=== PATIENT | female | born 1990 | race African-American/Black ===

== ENCOUNTER 2016-10-22 06:42 | Emergency (ER) | payer OTHER ==
[~2016-10-22] VITALS: Ht 167.6 cm; Wt 57.6 kg
[~2016-10-22 06:42] MED LIST: AMOXICILLIN500 MG ORAL; NEXAFED30 MG ORAL; NKM; TYLENOL EXTRA500 MG ORAL
[2016-10-22 06:55] VITALS: BP 139/77
[2016-10-22] MEDS ORDERED: AMOXICILLIN500 MG ORAL (07:02)
[2016-10-22] MEDS ORDERED: TYLENOL EXTRA500 MG ORAL (07:02)
--- NOTE | 2016-10-22 07:32 | Emergency Room Report ---
History of Present Illness General Chief Complaint: Sore Throat Source: Patient Present Illness HPI 25-year-old female presents to ED complaining of sore throat and earache x1 day. States symptoms started yesterday. Notes pain in the throat radiating to the left ear. Pain is 8/10, throbbing, nonradiating. Worse with swallowing. Denies any fevers or chills. Denies cough. No other aggravating or relieving factors. Denies any other associated symptoms Allergies: Coded Allergies: No Known Allergies (Unverified , 06/20/12) Patient History Past Medical History: asthma Past Surgical History: none Pertinent Family History: none Social History: Denies: alcohol use, drug use, smoking Last Menstrual Period: 2 WEEKS AGO Now: No Immunizations: UTD Reviewed Nursing Documentation: PMH: Agreed, PSxH: Agreed Nursing Documentation-PMH Hx Asthma: Yes Review of Systems All Other Systems: negative except mentioned in HPI Physical Exam Vital Signs Date Time Temp Pulse Resp B/P Pulse Ox O2 Delivery O2 Flow Rate FiO2 10/22/16 06:46 98.1 83 16 139/77 98 Room Air Sp02 EP Interpretation: reviewed, normal General Appearance: no apparent distress, alert, GCS 15, non-toxic Head: normocephalic Eyes: bilateral eye PERRL, bilateral eye normal inspection ENT: hearing grossly normal, no angioedema, normal voice, pharyngeal erythema, tonsillar exudate Neck: normal inspection Respiratory: chest non-tender, lungs clear, normal breath sounds, speaking full sentences Cardiovascular #1: regular rate, rhythm, no edema Gastrointestinal: normal inspection Rectal: deferred Genitourinary: no CVA tenderness Musculoskeletal: normal inspection Neurologic: alert, oriented x3, responsive, motor strength/tone normal, sensory intact, speech normal Psychiatric: normal inspection Skin: normal inspection Lymphatic: normal inspection Medical Decision Making Diagnostic Impression: Primary Impression: Pharyngitis Qualified Codes: J02.9 - Acute pharyngitis, unspecified ER Course Hospital Course 25-year-old female presents to ED complaining of sore throat Differential diagnoses include: URI, pharyngitis, otitis media Clinical course Patient placed on stretcher. After initial history, physical exam reveals a young female in no acute distress. Bilateral TM unremarkable. There is pharyngeal erythema w/ tonsillar exudates. No lymphadenopathy. Clinical findings consistent with pharyngitis. Diagnosis - pharyngitis Stable and discharged home with prescriptions for tylenol, amoxicillin. Instructed to followup with PMD. return to ED if symptoms recur or worsen Last Vital Signs Date Time Temp Pulse Resp B/P Pulse Ox O2 Delivery O2 Flow Rate FiO2 10/22/16 07:07 98.1 16 139/77 98 Room Air 10/22/16 06:46 83 Status: improved Disposition: HOME, SELF-CARE Condition: Stable Scripts Amoxicillin* (AMOXIL*) 500 Mg Capsule 500 MG ORAL THREE TIMES A DAY, #21 CAP Prov: MAYCO PORRAS M.D. 10/22/16 Acetaminophen* (TYLENOL EXTRA STRENGTH*) 500 Mg Tablet 500 MG ORAL Q8H Y for Prn Headache/Temp > 101, #30 TAB 0 Refills Prov: MAYCO PORRAS M.D. 10/22/16 Departure Forms: Return to Work Return to Work Date: Oct 24, 2016 Work Restrictions: None Patient Instructions: Pharyngitis, [place] MAYCO PORRAS M.D. Oct 22, 2016 07:32
== END 2016-10-22 07:07 | disposition home or self-care (01) ==
LOC: EMR 06:57
DX: J02.9 Acute pharyngitis, unspecified (principal); J45.909 Unspecified asthma, uncomplicated
CPT/HCPCS: 99284

== ENCOUNTER 2016-11-01 22:55 | Emergency (ER) | payer OTHER ==
[~2016-11-01] VITALS: Ht 167.6 cm; Wt 57.6 kg
[2016-11-02] MEDS ORDERED: TdaP Vaccine 0.5ml Syr IM ONE (00:15)
[2016-11-02] MEDS ORDERED: Lidocaine 1% Plain 30 ml INJ ONE (01:28)
[2016-11-02] MEDS ORDERED: Bacitracin Oint UD TOPIC ONE (01:49)
[2016-11-02 01:50] VITALS: BP 128/84
--- NOTE | 2016-11-02 03:29 | Emergency Room Report ---
History of Present Illness General Chief Complaint: Laceration Source: Patient Present Illness HPI 25-year-old female presents ED complaining of right hand pain status post punching car window. Patient states that she was upset and punched a window. Notes bleeding and some glass in her hand. Tetanus unknown. Pain is a 4/10, throbbing, nonradiating. No other aggravating or relieving factors. Denies any other injuries. Denies any other associated symptoms Allergies: Coded Allergies: No Known Allergies (Unverified , 06/20/12) Patient History Past Medical History: asthma Past Surgical History: none Pertinent Family History: none Social History: Denies: alcohol use, drug use, smoking Last Menstrual Period: OCT 15 Now: No : 1 Immunizations: UTD Reviewed Nursing Documentation: PMH: Agreed, PSxH: Agreed Nursing Documentation-PMH Hx Asthma: Yes Review of Systems All Other Systems: negative except mentioned in HPI Physical Exam Vital Signs Date Time Temp Pulse Resp B/P Pulse Ox O2 Delivery O2 Flow Rate FiO2 11/01/16 23:38 98.2 102 18 128/84 96 Sp02 EP Interpretation: reviewed, normal General Appearance: no apparent distress, alert, GCS 15, non-toxic Head: normocephalic Eyes: bilateral eye PERRL, bilateral eye normal inspection ENT: normal ENT inspection Neck: normal inspection Respiratory: chest non-tender, lungs clear, normal breath sounds, speaking full sentences Cardiovascular #1: normal inspection Gastrointestinal: normal inspection Rectal: deferred Genitourinary: no CVA tenderness Musculoskeletal: back normal, gait/station normal, normal range of motion, tender - R 5th knuckle Neurologic: alert, oriented x3, responsive, motor strength/tone normal, sensory intact, speech normal Psychiatric: normal inspection Skin: laceration - 1cm laceration over R 5th knuckle Lymphatic: normal inspection Procedures Laceration/Wound Repair Laceration/Wound Repair : Consent: Verbal Wound Location: upper extremity - R hand Wound's Depth, Shape: linear Wound Explored: clean Betadine Prep?: Yes Anesthesia: 1% Lidocaine Wound Debrided: minimal Wound Repaired With: sutures Suture Size/Type: 5:0, proline Layer Closure?: No Sterile Dressing Applied?: Yes Splint Applied?: No Sling Applied?: No Patient Tolerated: Well Complications: None Medical Decision Making Diagnostic Impression: Primary Impression: Laceration ER Course Hospital Course -year-old F presents to ED s/p laceration R hand s/p punched window Clinical course Patient placed on stretcher. After initial history and physical I ordered tetanus shot. Wound is irrigated. Glass is removed X-rays show no evidence of acute fracture Anesthesia provided with lidocaine. Laceration repaired w/o complication. Dressing applied. Diagnosis - laceration Stable and discharged to home. wound Care instructions given. Followup with PMD in 10-12 days for suture removal. Return to ED if any signs of infection develop Other X-Ray Diagnostic Results Other X-Ray Diagnostic Results : X-Ray Ordered: R hand, R wrist EP Interpretation: Yes Findings: no fractures, no dislocation, no soft tissue swelling Number of Views: 3 Other Impression Right hand-No fracture, no dislocation, no soft tissue swelling Right wrist-No fracture, no dislocation, no soft tissue swelling Last Vital Signs Date Time Temp Pulse Resp B/P Pulse Ox O2 Delivery O2 Flow Rate FiO2 11/02/16 01:50 98.2 85 18 128/84 96 Status: improved Disposition: HOME, SELF-CARE Condition: Stable Departure Forms: Return to Work Return to Work Date: Nov 03, 2016 Work Restrictions: No Heavy Lifting Patient Instructions: Laceration Care, Adult Additional Instructions: return to ED in 10-12 days for suture removal. return sooner if any signs of infection develop MAYCO PORRAS M.D. Nov 02, 2016 03:29
--- NOTE | 2016-11-02 11:33 | Diagnostic Imaging Report ---
Indications: PAIN Technique: 3 views of the right hand Comparison: None Findings: No acute fractures. No dislocations. Joint spaces are preserved. No radiopaque foreign body. Normal mineralization. Impression: No acute process This agrees with the preliminary interpretation provided by the emergency room physician
--- NOTE | 2016-11-02 12:01 | Diagnostic Imaging Report ---
Indications: PAIN Technique: 3 views of the right wrist Comparison: None Findings: No acute fractures. No dislocations. Joint spaces are preserved. No radiopaque foreign body. Normal mineralization. Impression: No acute process This agrees with the preliminary interpretation provided by the emergency room physician
== END 2016-11-02 01:50 | disposition home or self-care (01) ==
LOC: EMR 23:51
DX: S61.411A Laceration without foreign body of right hand, initial encounter (principal); Z23 Encounter for immunization; J45.909 Unspecified asthma, uncomplicated; W25.XXXA Contact with sharp glass, initial encounter; Y92.810 Car as the place of occurrence of the external cause; Y99.8 Other external cause status
CPT/HCPCS: 12001; 73110; 73130; 90471; 90715; 99284; J2001; Z7502

== ENCOUNTER 2017-03-09 12:03 | Emergency (ER) | payer OTHER ==
[~2017-03-09] VITALS: Ht 167.6 cm; Wt 57.6 kg
[2017-03-09] MEDS ORDERED: KENALOG 0.025%15 GM APPLIC (12:24)
[2017-03-09 12:32] VITALS: BP 124/88
[2017-03-09 12:34] VITALS: BP 124/88
--- NOTE | 2017-03-09 13:43 | Emergency Room Report ---
History of Present Illness General Chief Complaint: Skin Rash/Abscess Source: Patient Present Illness HPI The patient is a 26-year-old presenting for rash to both arms which began yesterday. She denies any known allergies. She states that she placed her arms on the armrest at work and then began to notice itching. She denies any pain. She denies any other rash. She has not tried any medications at. She denies any other symptoms including fever Allergies: Coded Allergies: No Known Allergies (Unverified , 06/20/12) Patient History Past Medical History: see triage record Pertinent Family History: none Last Menstrual Period: 3 weeks Now: No Reviewed Nursing Documentation: PMH: Agreed, PSxH: Agreed Nursing Documentation-PMH Past Medical History: No History, Except For Hx Asthma: Yes Review of Systems All Other Systems: negative except mentioned in HPI Physical Exam Vital Signs Date Time Temp Pulse Resp B/P Pulse Ox O2 Delivery O2 Flow Rate FiO2 03/09/17 12:07 97.9 82 18 124/88 99 Room Air Sp02 EP Interpretation: reviewed, normal General Appearance: no apparent distress, alert, GCS 15, non-toxic Head: normocephalic, atraumatic Eyes: bilateral eye PERRL, bilateral eye normal inspection ENT: hearing grossly normal, normal pharynx, no angioedema, normal voice Neck: full range of motion, supple/symm/no masses Respiratory: chest non-tender, lungs clear, normal breath sounds, speaking full sentences Cardiovascular #1: regular rate, rhythm, no edema Musculoskeletal: back normal, gait/station normal, normal range of motion, non- tender Neurologic: alert, oriented x3, responsive, motor strength/tone normal, sensory intact, speech normal Psychiatric: judgement/insight normal, memory normal, mood/affect normal, no suicidal/homicidal ideation Skin: rash - bilat erythema to arms distal to elbow. Non tender. No edema. Lymphatic: no adenopathy Medical Decision Making PA Attestation Dr. Gaines is my supervising physician. Patient management was discussed with my supervising physician Diagnostic Impression: Primary Impression: Contact dermatitis Qualified Codes: L25.9 - Unspecified contact dermatitis, unspecified cause ER Course The patient is a 26-year-old presenting for rash to both arms Ddx considered include but not limited to insect bite, contact dermatitis, eczema, cellulitis Physical exam is consistent with contact dermatitis. She'll be discharged home with a prescription for topical steroids and will avoid the irritant. ER precautions given Last Vital Signs Date Time Temp Pulse Resp B/P Pulse Ox O2 Delivery O2 Flow Rate FiO2 03/09/17 12:34 97.9 68 18 124/88 99 Room Air Status: improved Disposition: HOME, SELF-CARE Condition: Improved Scripts Triamcinolone Acet (Triamcinolone Acetonide) 15 Gm Cream..g. 15 GM APPLIC TID, #15 GM Prov: JAMA ERVIN 03/09/17 [facility],REFERRING (PCP) Patient Instructions: Contact Dermatitis Additional Instructions: I discussed my findings with the patient. All questions and concerns have been answered. Treatment and medication compliance have been addressed. I advised the patient that they need to follow up with PMD in 3-5 days. Return to ED if symptoms worsen, new symptoms arise, or if needed for any reason. Patient verbalized understanding of discharge instructions. JAMA ERVIN Mar 09, 2017 13:43
== END 2017-03-09 12:30 | disposition home or self-care (01) ==
LOC: EMR 12:20
DX: L25.9 Unspecified contact dermatitis, unspecified cause (principal); J45.909 Unspecified asthma, uncomplicated
CPT/HCPCS: 99283

== ENCOUNTER 2017-05-22 20:51 | Emergency (ER) | payer MEDICAID, OTHER ==
[~2017-05-22] VITALS: Ht 167.6 cm; Wt 55.3 kg
[~2017-05-22 20:51] MED LIST changes: +KENALOG 0.025%15 GM APPLIC
[2017-05-22] MEDS ORDERED: AMOXICILLIN500 MG ORAL (21:24)
[2017-05-22] MEDS ORDERED: HYDROCODON-ACE1 EA15 ORAL (21:24)
[2017-05-22] MEDS ORDERED: IBUPROFEN600 MG ORAL (21:24)
--- NOTE | 2017-05-22 21:25 | Emergency Room Report ---
History of Present Illness General Chief Complaint: Sore Throat Source: Patient Present Illness HPI Is a 26-year-old female with no past medical history. She presents with chief complaint of fever, body pain, sore throat for the last for 5 days. Pain is 10 out of 10. [place] weak. [place] heart beating fast. Has not anything for this. No nausea no vomiting. Allergies: Coded Allergies: No Known Allergies (Unverified , 06/20/12) Patient History Past Medical History: see triage record, old chart reviewed Past Surgical History: other Pertinent Family History: none Social History: Denies: smoking Last Menstrual Period: may 09 Now: No : 1 Immunizations: other Reviewed Nursing Documentation: PMH: Agreed, PSxH: Agreed Nursing Documentation-PMH Hx Asthma: Yes Review of Systems Constitutional: Reports: fever, malaise Eye: Denies: eye pain, blurred vision ENT: Reports: throat pain, Denies: ear pain, nose congestion, throat swelling Respiratory: Denies: cough, shortness of breath Cardiovascular: Denies: chest pain, palpitations Gastrointestinal: Denies: abdominal pain, diarrhea, nausea, vomiting Musculoskeletal: Denies: back pain, joint pain Skin: Denies: rash Neurological: Denies: headache, numbness Endocrine: Denies: increased thirst, increased urine Hematologic/Lymphatic: Denies: easy bruising All Other Systems: negative except mentioned in HPI Physical Exam Vital Signs Date Time Temp Pulse Resp B/P (MAP) Pulse Ox O2 Delivery O2 Flow Rate FiO2 05/22/17 20:59 99.9 97 20 124/76 98 Room Air vital fever Sp02 EP Interpretation: reviewed, normal General Appearance: well appearing, no apparent distress, alert Head: normocephalic, atraumatic Eyes: bilateral eye PERRL, bilateral eye EOMI ENT: hearing grossly normal, tonsillar swelling, pharyngeal erythema, tonsillar exudate - On right Neck: full range of motion, supple, no meningismus Respiratory: chest non-tender, lungs clear, normal breath sounds Cardiovascular #1: regular rate, rhythm, no murmur Gastrointestinal: normal bowel sounds, non tender, no mass, no organomegaly, no bruit, non-distended Musculoskeletal: back normal, gait/station normal, normal range of motion Psychiatric: mood/affect normal Skin: warm/dry Medical Decision Making Diagnostic Impression: Primary Impression: Strep tonsillitis ER Course Patient with symptoms consistent with strep pharyngitis/tonsillitis. No evidence of peritonsillar abscess, retropharyngeal abscess or Neel angina. No trismus. We'll discharge home. Last Vital Signs Date Time Temp Pulse Resp B/P (MAP) Pulse Ox O2 Delivery O2 Flow Rate FiO2 05/22/17 20:59 99.9 97 20 124/76 98 Room Air Status: improved Disposition: HOME, SELF-CARE Condition: Stable Scripts Ibuprofen* (MOTRIN*) 600 Mg Tablet 600 MG ORAL THREE TIMES A DAY, #30 TAB 0 Refills Prov: LEV ALEXIS M.D. 05/22/17 Hydrocodone/Acetaminophen 5-325* (HYDROCODONE/ACETAMINOPHEN 5-325*) 1 Each Tablet 1 TAB ORAL Q6H Y for For Pain, #10 TAB 0 Refills Prov: LEV ALEXIS M.D. 05/22/17 Amoxicillin* (AMOXIL*) 500 Mg Capsule 500 MG ORAL THREE TIMES A DAY, #21 CAP Prov: LEV ALEXIS M.D. 05/22/17 Patient Instructions: Strep Throat Additional Instructions: Followup with your Dr. in 2-3 days. Increase fluid. Return if symptom worsen. LEV ALEXIS M.D. May 22, 2017 21:25
[2017-05-22] MEDS ORDERED: Acetaminophen 500mg (ES) tab ORAL ONE (21:30)
[2017-05-22 21:54] VITALS: BP 124/76
== END 2017-05-22 21:54 | disposition home or self-care (01) ==
LOC: EMR 21:15
DX: J03.00 Acute streptococcal tonsillitis, unspecified (principal); J45.909 Unspecified asthma, uncomplicated
CPT/HCPCS: 99284

== ENCOUNTER 2018-04-06 18:05 | Emergency (ER) | payer MEDICAID ==
[~2018-04-06] VITALS: Ht 167.6 cm; Wt 57.6 kg
[~2018-04-06 18:05] MED LIST changes: +HYDROCODON-ACE1 EA15 ORAL; +IBUPROFEN600 MG ORAL
[2018-04-06] MEDS ORDERED: EXCEDRIN EXTRA1 EAC1 PO (18:23)
[2018-04-06] MEDS ORDERED: ALBUTEROL SULF8.5 GM INH (18:24)
[2018-04-06 18:35] VITALS: BP 109/81
--- NOTE | 2018-04-06 18:44 | Emergency Room Report ---
History of Present Illness General Chief Complaint: Pain Source: Patient Present Illness HPI 27 YO Female presents to the ED c/o 03/30 in severity localized pain, swelling, and erythema to the right lower jaw, and tooth pain in the right wisdom tooth with pus x 2-3 days. denies fevers, chills or recent dental procedures. Pt. is . denies sore throat. denies oral trauma. denies swollen tender lymph nodes. Allergies: Coded Allergies: No Known Allergies (Unverified , 06/20/12) Patient History Past Medical History: see triage record Past Surgical History: none Pertinent Family History: none Last Menstrual Period: 11/03/17 Now: Yes - 5 1/2 MONTHS Reviewed Nursing Documentation: PMH: Agreed; PSxH: Agreed Nursing Documentation-PMH Hx Asthma: Yes Review of Systems All Other Systems: negative except mentioned in HPI Physical Exam Vital Signs Date Time Temp Pulse Resp B/P (MAP) Pulse Ox O2 Delivery O2 Flow Rate FiO2 04/06/18 18:18 98.2 97 18 114/76 100 Room Air 98.2 Sp02 EP Interpretation: reviewed, normal General Appearance: no apparent distress, alert, GCS 15, non-toxic Head: normocephalic, atraumatic Eyes: bilateral eye normal inspection, bilateral eye PERRL ENT: hearing grossly normal, normal voice, other - partial erruption of the right lower wisdom tooth, the overlying gum is erythematous, no pus noted on exam, no palpable area of fluctuance noted. Neck: full range of motion Respiratory: lungs clear, normal breath sounds, speaking full sentences Cardiovascular #1: regular rate, rhythm Musculoskeletal: back normal, gait/station normal, normal range of motion, non- tender Neurologic: alert, oriented x3, responsive, motor strength/tone normal, sensory intact, normal gait, speech normal, grossly normal Psychiatric: judgement/insight normal Skin: normal color, no rash, warm/dry, well hydrated Lymphatic: no adenopathy Medical Decision Making PA Attestation Dr. solis is my supervising Physician whom patient management has been discussed with. Diagnostic Impression: Primary Impression: Dental infection Additional Impression: Tooth eruption ER Course 27 YO Female presents to the ED c/o 03/30 in severity localized pain, swelling, and erythema to the right lower jaw, and tooth pain in the right wisdom tooth with pus x 2-3 days. denies fevers, chills or recent dental procedures. Pt. is . denies sore throat. denies oral trauma. denies swollen tender lymph nodes. Ddx considered but are not limited to cellulitis, dental abscess, orbital cellulitis, d/l tooth, dental pain. trigeminal neuralgia Vital signs: are WNL, pt. is afebrile H&PE are most consistent with impacted wisdom tooth with mild infection present. ORDERS: none required at this time, the diagnosis is clinical ED INTERVENTIONS: None required at this time. DISCHARGE: At this time pt. is stable for d/c to home. Will provide printed patient care instructions, and any necessary prescriptions. Care plan and follow up instructions have been discussed with the patient prior to discharge. Last Vital Signs Date Time Temp Pulse Resp B/P (MAP) Pulse Ox O2 Delivery O2 Flow Rate FiO2 04/06/18 18:35 98.2 87 18 109/81 99 Room Air 98.2 Disposition: HOME, SELF-CARE Condition: Stable Scripts Chlorhexidine Gluconate (CHLORHEXIDINE GLUCONATE) 473 Ml Mouthwash 15 ML MM TID, #473 ML Prov: Destiny Walker 04/06/18 Amoxicillin* (AMOXIL*) 500 Mg Capsule 500 MG ORAL BID for 7 Days, #14 CAP Prov: Destiny Walker 04/06/18 Referrals: [facility],REFERR[facility] (PCP) Departure Forms: Return to Work Return to Work Date: Apr 07, 2018 Work Restrictions: None Other Restrictions: please excuse for 04/06/18. Return to Full Activity: Apr 07, 2018 Patient Instructions: Pericoronitis Additional Instructions: Take medications as directed. Follow up with a Dentist in 3-5 days, even if your symptoms have resolved. * * --Please review list of Dental clinics, if you do not already have a Dentist Return sooner to ED if new symptoms occur, or current symptoms become worse. - Please note that this Emergency Department Report was dictated using [employer] babys[employer] technology software, occasionally this can lead to erroneous entry secondary to interpretation by the dictation equipment. Destiny Walker Apr 06, 2018 18:44
[2018-04-06] MEDS ORDERED: AMOXICILLIN500 MG ORAL (18:46)
[2018-04-06] MEDS ORDERED: CHLORHEXIDINE473 ML MM (18:46)
[2018-04-06 18:55] VITALS: BP 109/81
== END 2018-04-06 18:55 | disposition home or self-care (01) ==
LOC: EMR 18:32
DX: K04.7 Periapical abscess without sinus (principal); K00.6 Disturbances in tooth eruption
CPT/HCPCS: 99282

== ENCOUNTER 2018-05-01 18:40 | Emergency (ER) | payer MEDICAID ==
[~2018-05-01] VITALS: Ht 167.6 cm; Wt 58.1 kg
[~2018-05-01 18:40] MED LIST changes: +ALBUTEROL SULF8.5 GM INH; +CHLORHEXIDINE473 ML MM; +EXCEDRIN EXTRA1 EAC1 PO
[2018-05-01 19:12] LABS: APPEARANCE,URINE CLOUDY; BILIRUBIN, URINE NEGATIVE (NEGATIVE); GLUCOSE, URINE (UA) NEGATIVE (NEGATIVE); KETONES,URINE NEGATIVE (NEGATIVE); LEUKOCYTE ESTERASE ,URINE 2+ (NEGATIVE); NITRITE,URINE NEGATIVE (NEGATIVE); PH,URINE 6.5 (4.5-8.0); PROTEIN,URINE 1+ (NEGATIVE); UROBILINOGEN,URINE 4 MG/DL (0.0-1.0)
[2018-05-01 19:13] VITALS: BP 112/71
[2018-05-01 19:14] LABS: COLOR,URINE YELLOW
--- NOTE | 2018-05-01 20:18 | Emergency Room Report ---
History of Present Illness General Chief Complaint: Lower Back Pain or Injury Source: Patient Present Illness HPI This patient is 6 months . She is . There've been no complications of her . She states that she developed right-sided low back pain for the past day. She states it is very uncomfortable. She denies vaginal bleeding or contractions. She denies fever or chills. She denies nausea or vomiting. She denies dysuria or hematuria. She has no other complaints. Allergies: Coded Allergies: No Known Allergies (Unverified , 06/20/12) Patient History Past Medical History: see triage record, asthma Social History: Denies: smoking, alcohol use, drug use Last Menstrual Period: 11/03/17 Now: Yes Reviewed Nursing Documentation: PMH: Agreed; PSxH: Agreed Nursing Documentation-PMH Past Medical History: No History, Except For Hx Asthma: Yes Review of Systems All Other Systems: negative except mentioned in HPI Physical Exam Vital Signs Date Time Temp Pulse Resp B/P (MAP) Pulse Ox O2 Delivery O2 Flow Rate FiO2 05/01/18 18:44 97.3 98 20 124/71 97 Room Air 97.3 Sp02 EP Interpretation: reviewed, normal General Appearance: no apparent distress, alert, GCS 15, non-toxic Head: normocephalic, atraumatic Eyes: bilateral eye normal inspection, bilateral eye PERRL ENT: hearing grossly normal, normal pharynx, no angioedema, normal voice Neck: full range of motion, supple/symm/no masses Respiratory: chest non-tender, lungs clear, normal breath sounds, speaking full sentences Cardiovascular #1: regular rate, rhythm, no edema Gastrointestinal: normal bowel sounds, non tender, soft, no guarding, no rebound, other - Gravid Rectal: deferred Musculoskeletal: back normal, gait/station normal, normal range of motion, non- tender Neurologic: alert, oriented x3, responsive, motor strength/tone normal, sensory intact, speech normal Psychiatric: judgement/insight normal, memory normal, mood/affect normal, no suicidal/homicidal ideation Skin: normal color, no rash, warm/dry, well hydrated Medical Decision Making Diagnostic Impression: Primary Impression: Low back pain ER Course This patient is 6 months with right-sided back pain. She underwent OB ultrasound that shows a normal 6 month fetus. The cervix is long and closed. Urinalysis shows no evidence of infection. History is not consistent with labor as the patient is not having contractions or pelvic pain. I did consider appendicitis and ureterolithiasis. I discussed this as a possibility with the patient. With further discussion the patient did decline CT of the abdomen and pelvis for concern of radiation to her unborn baby. I did educate the patient on the signs and symptoms of appendicitis. She was given very close return precautions to include appendicitis precautions. Laboratory Tests Test 05/01/18 19:00 Urine Color Yellow Urine Appearance Cloudy Urine pH 6.5 (4.5-8.0) Urine Specific [place] 1.020 (1.005-1.035) Urine Protein 1+ (NEGATIVE) H Urine Glucose (UA) Negative (NEGATIVE) Urine Ketones Negative (NEGATIVE) Urine Blood Negative (NEGATIVE) Urine Nitrite Negative (NEGATIVE) Urine Bilirubin Negative (NEGATIVE) Urine Urobilinogen 4 MG/DL (0.0-1.0) H Urine Leukocyte Esterase 2+ (NEGATIVE) H Urine RBC 0-2 /HPF (0 - 2) Urine WBC 2-4 /HPF (0 - 2) Urine Squamous Epithelial Cells Many /LPF (NONE/OCC) H Urine Amorphous Sediment Moderate /LPF (NONE) H Urine Bacteria Few /HPF (NONE) Last Vital Signs Date Time Temp Pulse Resp B/P (MAP) Pulse Ox O2 Delivery O2 Flow Rate FiO2 05/01/18 19:13 97.4 85 20 112/71 99 97.4 05/01/18 18:44 Room Air Status: improved Disposition: HOME, SELF-CARE Condition: Improved Referrals: [facility],REFERR[facility] (PCP) Patient Instructions: Back Pain, Adult Tamika Hardy DO May 01, 2018 20:18
[2018-05-01] MEDS ORDERED: Acetaminophen 500mg (ES) tab ORAL ONE (20:30)
[2018-05-01] MEDS ORDERED: ACETAMINOPHEN500 M3 ORAL (20:53)
[2018-05-01 21:11] VITALS: BP 118/74
[2018-05-01 21:14] VITALS: BP 118/74
--- NOTE | 2018-05-02 08:58 | Diagnostic Imaging Report ---
Indication: Pelvic pain, positive Technique: Transabdominal images of the uterus Comparison: none Findings: There is a single live intrauterine . There is positive heart activity, heart rate 152 bpm. Posterior fundal placenta, clears the internal cervical os. Normal amniotic fluid volume, amniotic fluid index 9.8 cm. The cervix is closed, endocervical canal measuring 4.5 cm in length. Lie is transverse measurements as follows: Biparietal diameter 65 mm, 26 weeks one day; head circumference to 32 mm, 25 weeks one day; abdominal circumference one 96 m, 24 weeks 2 days; femur length 49 mm, 26 weeks 2 days. Estimated gestational age by average ultrasound measurements is 25 weeks 3 days. Estimated gestational age by dates 25 weeks 4 days. Estimated date of confinement is 08/11/2018 Only limited assessment of anatomy due to the emergent nature of the exam. Normal four-chamber heart, spine, urinary bladder, insertion of three-vessel cord, stomach demonstrated Impression: 25 week 3 day, by average of ultrasound measurements, single live intrauterine . No unusual features
== END 2018-05-01 21:14 | disposition home or self-care (01) ==
LOC: EMR 19:34
DX: O99.89 Other specified diseases and conditions complicating pregnancy, childbirth and the puerperium (principal); Z3A.25 25 weeks gestation of pregnancy; M54.5 Low back pain; O99.512 Diseases of the respiratory system complicating pregnancy, second trimester; J45.909 Unspecified asthma, uncomplicated
CPT/HCPCS: 76805; 81003; 99284